=== PATIENT | female | born 1965 | race Caucasian/White ===

== ENCOUNTER 2018-12-22 11:57 | Emergency (ER) | payer OTHER ==
[~2018-12-22] VITALS: Ht 157.5 cm; Wt 91.2 kg
[2018-12-22 12:05] VITALS: Ht 157.5 cm; Wt 91.2 kg
[2018-12-22 13:12] VITALS: BP 136/81
== END 2018-12-22 13:12 | disposition home or self-care (01) ==
LOC: ED 11:57
DX: S92.514A Nondisplaced fracture of proximal phalanx of right lesser toe(s), initial encounter for closed fracture (principal); E11.9 Type 2 diabetes mellitus without complications; F32.9 Major depressive disorder, single episode, unspecified; E78.5 Hyperlipidemia, unspecified; D69.6 Thrombocytopenia, unspecified; Z90.710 Acquired absence of both cervix and uterus; Z98.890 Other specified postprocedural states; W22.8XXA Striking against or struck by other objects, initial encounter; Y93.89 Activity, other specified; Y92.009 Unspecified place in unspecified non-institutional (private) residence as the place of occurrence of the external cause; Y99.8 Other external cause status

== ENCOUNTER 2019-01-29 15:23 | Emergency (ER) | payer OTHER ==
[~2019-01-29] VITALS: Ht 157.5 cm; Wt 89.8 kg
[2019-01-29 15:38] VITALS: Ht 157.5 cm; Wt 89.8 kg
[2019-01-29 16:43] LABS: BASOPHIL % 0.3 % (0-2); RED CELL DISTRIBUTION WIDTH 12.6 % (11.5-14.5)
[2019-01-29 16:46] LABS: PLATELET COUNT 506 x10^3mcL (130-400)
[2019-01-29 17:07] LABS: ALBUMIN 3.4 g/dL (3.4-5.0); ALKALINE PHOSPHATASE 165 U/L (46-116); AST/SGOT 7 U/L (15-37); BILIRUBIN TOTAL 0.75 mg/dL (0.20-1.00); CALCIUM 9.4 mg/dL (8.5-10.1); CARBON DIOXIDE 24.2 mmol/L (21-32); CHLORIDE SERUM 103 mmol/L (98-107); GFR1 > 60 mL/min; GLUCOSE SERUM 321 mg/dL (74-106); LIPASE 116 IU/L (73-393); SODIUM SERUM 137 mmol/L (136-145); TOTAL PROTEIN, SERUM 7.8 g/dL (6.4-8.2)
[2019-01-29 17:15] LABS: ALT/SGPT 16 U/L (14-59)
[2019-01-29 19:03] VITALS: BP 100/64
== END 2019-01-29 19:03 | disposition home or self-care (01) ==
LOC: ED 15:23
PROVIDERS: Emergency Medicine
DX: K29.70 Gastritis, unspecified, without bleeding (principal); E11.9 Type 2 diabetes mellitus without complications; D69.6 Thrombocytopenia, unspecified; F32.9 Major depressive disorder, single episode, unspecified; Z90.710 Acquired absence of both cervix and uterus
CPT/HCPCS: J2270; J2405; J7030; Q0092

== ENCOUNTER 2019-02-16 17:26 | Emergency (ER) | payer OTHER ==
[~2019-02-16] VITALS: Ht 157.5 cm; Wt 88.9 kg
[2019-02-16 17:44] VITALS: Ht 157.5 cm; Wt 88.9 kg
[2019-02-16 19:52] LABS: microscopic required? NO
[2019-02-16 20:12] LABS: UA SPECIFIC GRAVITY <=1.005 (1.005-1.035); urine erythrocyte NEGATIVE (NEGATIVE)
[2019-02-16 20:13] LABS: CALCIUM 9.5 mg/dL (8.5-10.1); CARBON DIOXIDE 24.5 mmol/L (21-32); CHLORIDE SERUM 95 mmol/L (98-107); GFR1 > 60 mL/min; GLUCOSE SERUM 396 mg/dL (74-106); POTASSIUM SERUM 3.4 mmol/L (3.5-5.1); SODIUM SERUM 130 mmol/L (136-145)
[2019-02-16 20:14] LABS: BASOPHIL % 0.4 % (0-2); RED CELL DISTRIBUTION WIDTH 12.6 % (11.5-14.5)
[2019-02-16 20:17] LABS: ALBUMIN 3.4 g/dL (3.4-5.0); ALKALINE PHOSPHATASE 168 U/L (46-116); ALT/SGPT 17 U/L (14-59); AMYLASE 55 U/L (25-115); AST/SGOT 5 U/L (15-37); BILIRUBIN TOTAL 0.95 mg/dL (0.20-1.00); HDL CHOLESTEROL 40 mg/dL (40-60); LIPASE 84 IU/L (73-393); PLATELET COUNT 546 x10^3mcL (130-400); TOTAL PROTEIN, SERUM 7.5 g/dL (6.4-8.2)
[2019-02-16 20:19] LABS: CHOLESTEROL 270 mg/dL (<200)
[2019-02-16 22:36] VITALS: BP 105/65
== END 2019-02-16 22:36 | disposition home or self-care (01) ==
LOC: ED 17:26
PROVIDERS: Emergency Medicine
DX: E11.65 Type 2 diabetes mellitus with hyperglycemia (principal); D69.3 Immune thrombocytopenic purpura; F32.9 Major depressive disorder, single episode, unspecified; M79.674 Pain in right toe(s); E66.9 Obesity, unspecified; Z68.35 Body mass index [BMI] 35.0-35.9, adult; Z98.890 Other specified postprocedural states; Z90.710 Acquired absence of both cervix and uterus
CPT/HCPCS: 36600; 82962; J1815; J7030; Q0092

== ENCOUNTER 2019-03-14 06:59 | Emergency (ER) | payer OTHER ==
[~2019-03-14] VITALS: Ht 157.5 cm; Wt 88.5 kg
[2019-03-14 07:13] VITALS: Ht 157.5 cm; Wt 88.5 kg
[2019-03-14 08:21] VITALS: BP 119/84
== END 2019-03-14 08:21 | disposition home or self-care (01) ==
LOC: ED 06:59
DX: M54.5 Low back pain (principal); G89.29 Other chronic pain
CPT/HCPCS: J1885

== ENCOUNTER 2019-05-25 09:30 | Emergency (ER) | payer OTHER ==
[~2019-05-25] VITALS: Ht 157.5 cm; Wt 88.5 kg
[2019-05-25 09:48] VITALS: Ht 157.5 cm; Wt 88.5 kg
[2019-05-25 12:13] VITALS: BP 100/56
== END 2019-05-25 12:13 | disposition home or self-care (01) ==
LOC: ED 09:30
DX: G89.29 Other chronic pain (principal); M54.5 Low back pain; F41.9 Anxiety disorder, unspecified; E11.9 Type 2 diabetes mellitus without complications; D69.6 Thrombocytopenia, unspecified; Z98.890 Other specified postprocedural states; Z98.51 Tubal ligation status; Z90.710 Acquired absence of both cervix and uterus
CPT/HCPCS: 82962; J1885